=== PATIENT | male | born 1955 | race African-American/Black ===

== ENCOUNTER 2018-06-01 10:04 | Inpatient (IN) | payer OTHER ==
[~2018-06-01] VITALS: Ht 190.5 cm; Wt 88.0 kg
[2018-06-01 09:57] VITALS: BP 137/51
--- NOTE | 2018-06-01 10:04 | NUR ---
ED Nurse Note: brought in by 82Jolly from home due to LUQ abdominal pain 12/19 with N/V that started 2 days ago. Pt came in with emesis bag full of bile. Last meal was yesterday morning. Addendum: 06/01/18 at 1015 by [email or web address] ED Nurse Note: brought in by 82Jolly from home due to LUQ abdominal pain 12/19 with N/V that started this morning. Pt came in with emesis bag full of bile. Last meal was yesterday morning. Denies bloody stool nor bloody emesis.
--- NOTE | 2018-06-01 10:18 | Emergency Room Report ---
History of Present Illness General Chief Complaint: Abdominal Pain Source: Patient, EMS Present Illness HPI Patient presents with epigastric pain and vomiting. He denies vomiting blood. This began this morning. He was drinking heavily last night and today. He moved his bowels yesterday. He didn't notice what color the stool was. He rates the pain 12/10 at this time. He says can't keep anything down. Pain is constant and epigastric, not radiating. Generalized weakness, more when standing. Patient diabetic. No fevers, chills, cough, sore throat, chest pain, headache, depression. No joint pain. Allergies: Coded Allergies: No Known Allergies (Unverified , 06/01/18) Patient History Past Medical History: see triage record Social History: Reports: alcohol use, drug use - see tox Social History Narrative from home Reviewed Nursing Documentation: PMH: Agreed; PSxH: Agreed Nursing Documentation-PMH Past Medical History: No History, Except For Hx Hypertension: Yes Hx Pacemaker: Yes Hx Diabetes: Yes History Of Psychiatric Problem: Yes Review of Systems All Other Systems: negative except mentioned in HPI Physical Exam Vital Signs Date Time Temp Pulse Resp B/P (MAP) Pulse Ox O2 Delivery O2 Flow Rate FiO2 06/01/18 09:53 98.1 68 18 141/68 95 Room Air Sp02 EP Interpretation: reviewed, normal General Appearance: mild distress Head: normocephalic Eyes: bilateral eye PERRL, bilateral eye EOMI, bilateral eye Scleral Injection ENT: moist mucus membranes Neck: supple Respiratory: lungs clear, normal breath sounds Cardiovascular #1: regular rate, rhythm Cardiovascular #2: 2+ radial (R) Gastrointestinal: normal inspection, soft, no mass, non-distended, no rebound, guarding - epigastric, tenderness - epigastric, decreased bowel sounds Genitourinary: no CVA tenderness Musculoskeletal: back normal, normal range of motion Neurologic: alert, oriented x3, grossly normal Psychiatric: depressed affect Skin: normal inspection, warm/dry Medical Decision Making Diagnostic Impression: Primary Impression: Abdominal pain Qualified Codes: R10.13 - Epigastric pain Additional Impressions: Hyperglycemia Renal insufficiency Cocaine abuse Leukocytosis Qualified Codes: D72.828 - Other elevated white blood cell count Elevated lipase ER Course Patient with NV and epigastric pain started this AM. DDx: gastritis, pancreatitis, GERD, AMI, dehydration amongst others. Evaluation with EKG, CXR, Abd, labs. Treatment with IV hydration, reglan, benadryl and pepcid. EKG without injury. CXR no infiltrates. Abd without SBO. Elevated WBC. Renal insufficiency. Elevated glucose. + tox cocaine. Min elevated lipase. Improved and wants to eat. States he is non-compliant with insulin and does not know doses. Due to labs and still with nausea and abominal pain needs admission. Not surgical abdomen. Admit med, Dr. Beltrán. Laboratory Tests Test 06/01/18 10:04 06/01/18 11:50 White Blood Count 16.2 K/UL (4.8-10.8) H Red Blood Count 4.87 M/UL (4.70-6.10) Hemoglobin 13.4 G/DL (14.2-18.0) L Hematocrit 41.2 % (42.0-52.0) L Mean Corpuscular Volume 85 FL (80-99) Mean Corpuscular Hemoglobin 27.4 PG (27.0-31.0) Mean Corpuscular Hemoglobin Concent 32.4 G/DL (32.0-36.0) Red Cell Distribution Width 14.3 % (11.6-14.8) Platelet Count 204 K/UL (150-450) Mean Platelet Volume 8.6 FL (6.5-10.1) Neutrophils (%) (Auto) 83.7 % (45.0-75.0) H Lymphocytes (%) (Auto) 9.1 % (20.0-45.0) L Monocytes (%) (Auto) 6.6 % (1.0-10.0) Eosinophils (%) (Auto) 0.0 % (0.0-3.0) Basophils (%) (Auto) 0.6 % (0.0-2.0) Prothrombin Time 12.0 SEC (9.30-11.50) H Prothrombin Time INR 1.1 (0.9-1.1) PTT 29 SEC (23-33) Sodium Level 137 MMOL/L (136-145) Potassium Level 3.9 MMOL/L (3.5-5.1) Chloride Level 98 MMOL/L (98-107) Carbon Dioxide Level 29 MMOL/L (21-32) Anion Gap 11 mmol/L (5-15) Blood Urea Nitrogen 24 mg/dL (7-18) H Creatinine 1.4 MG/DL (0.55-1.30) H Estimate Glomerular Filtration Rate 51.0 mL/min (>60) Glucose Level 322 MG/DL (74-106) H Calcium Level 9.7 MG/DL (8.5-10.1) Total Bilirubin 0.8 MG/DL (0.2-1.0) Aspartate Amino Transferase (AST) 41 U/L (15-37) H Alanine Aminotransferase (ALT) 89 U/L (12-78) H Alkaline Phosphatase 115 U/L (46-116) Total Creatine Kinase 56 U/L (26-308) Troponin I 0.034 ng/mL (0.000-0.056) Total Protein 8.1 G/DL (6.4-8.2) Albumin 3.5 G/DL (3.4-5.0) Globulin 4.6 g/dL Albumin/Globulin Ratio 0.8 (1.0-2.7) L Lipase 414 U/L (73-393) H Urine Color Pale yellow Urine Appearance Clear Urine pH 6 (4.5-8.0) Urine Specific [place] 1.010 (1.005-1.035) Urine Protein 2+ (NEGATIVE) H Urine Glucose (UA) 4+ (NEGATIVE) H Urine Ketones 1+ (NEGATIVE) H Urine Blood Negative (NEGATIVE) Urine Nitrite Negative (NEGATIVE) Urine Bilirubin Negative (NEGATIVE) Urine Urobilinogen Normal MG/DL (0.0-1.0) Urine Leukocyte Esterase Negative (NEGATIVE) Urine RBC 0 /HPF (0 - 0) Urine WBC 0-2 /HPF (0 - 0) Urine Squamous Epithelial Cells Occasional /LPF Urine Bacteria Occasional /HPF (NONE) Urine Opiates Screen Negative (NEGATIVE) Urine Barbiturates Screen Negative (NEGATIVE) Phencyclidine (PCP) Screen Negative (NEGATIVE) Urine Amphetamines Screen Negative (NEGATIVE) Urine Benzodiazepines Screen Negative (NEGATIVE) Urine Cocaine Screen Positive (NEGATIVE) H Urine Marijuana (THC) Screen Negative (NEGATIVE) EKG Diagnostic Results Rate: other - rate 70 Rhythm: other - paced Rhythm Strip Diag. Results EP Interpretation: yes Rhythm: no PVC's, no ectopy, other Chest X-Ray Diagnostic Results Chest X-Ray Diagnostic Results : Chest X-Ray Ordered: Yes # of Views/Limited/Complete: 1 View Indication: Other EP Interpretation: Yes Interpretation: no consolidation, no effusion, no pneumothorax, other - COPD , pacer Impression: Other Electronically Signed by: Electronically signed by Jarad Anton MD Other X-Ray Diagnostic Results Other X-Ray Diagnostic Results : X-Ray ordered: abdomen # of Views/Limited Vs Complete: 2 View Indication: Pain EP Interpretation: Yes Interpretation: nonspecific bowel gas, no sbo, other - calcifications Impression: Other Electronically Signed by: Electronically signed by Jarad Anton MD Status: improved Disposition: ADMITTED INPATIENT Condition: Serious Scripts No Active Prescriptions or Reported Meds Jarad Anton MD Jun 01, 2018 10:18
[2018-06-01] MEDS ORDERED: Metoclopramide 10mg/2ml Inj IVP ONE (10:30)
[2018-06-01] MEDS ORDERED: DiphenhydrAMINE 50mg/ml Inj IVP ONE (10:30)
[2018-06-01 10:37] LABS: BASOPHILS % (AUTO) 0.6 % (0.0-2.0); HEMATOCRIT 41.2 % (42.0-52.0); HEMOGLOBIN 13.4 G/DL (14.2-18.0); LYMPHOCYTES % (AUTO) 9.1 % (20.0-45.0); MEAN CORPUSCULAR VOLUME 85 FL (80-99); MONOCYTES % (AUTO) 6.6 % (1.0-10.0); NEUTROPHILS % (AUTO) 83.7 % (45.0-75.0); PLATELET COUNT 204 K/UL (150-450); RED BLOOD COUNT 4.87 M/UL (4.70-6.10); RED CELL DISTRIBUTION WIDTH 14.3 % (11.6-14.8); WHITE BLOOD COUNT 16.2 K/UL (4.8-10.8)
[2018-06-01 10:42] LABS: INR 1.1 (0.9-1.1)
[2018-06-01 10:46] LABS: ANION GAP 11 mmol/L (5-15); BLOOD UREA NITROGEN 24 mg/dL (7-18); CALCIUM 9.7 MG/DL (8.5-10.1); CARBON DIOXIDE 29 MMOL/L (21-32); CHLORIDE 98 MMOL/L (98-107); CREATININE 1.4 MG/DL (0.55-1.30); POTASSIUM 3.9 MMOL/L (3.5-5.1); SODIUM 137 MMOL/L (136-145)
[2018-06-01 10:51] LABS: ALANINE AMINOTRANSFERASE 89 U/L (12-78); ALBUMIN 3.5 G/DL (3.4-5.0); ALBUMIN/GLOBULIN RATIO 0.8 (1.0-2.7); ALKALINE PHOSPHATASE 115 U/L (46-116); ASPARTATE AMINO TRANSFERASE 41 U/L (15-37); BILIRUBIN,TOTAL 0.8 MG/DL (0.2-1.0); CREATINE KINASE 56 U/L (26-308)
--- NOTE | 2018-06-01 10:57 | Diagnostic Imaging Report ---
EXAM: XR Chest, 1 View CLINICAL HISTORY: ABD PAIN TECHNIQUE: Frontal view of the chest. COMPARISON: No relevant prior studies available. FINDINGS: Lungs: Mild perihilar interstitial prominence and streaky opacities in the right lower lobe. No consolidation. Pleural space: Unremarkable. No pneumothorax. Heart: Unremarkable. No cardiomegaly. Mediastinum: Unremarkable. Bones/joints: Unremarkable. Tubes, lines and devices: Cardiac pacemaker. IMPRESSION: Mild perihilar interstitial prominence and streaky opacities in the right lower lobe. May be mild edema or pneumonitis
--- NOTE | 2018-06-01 11:01 | Diagnostic Imaging Report ---
EXAM: XR Abdomen, 1 Views CLINICAL HISTORY: ABD PAIN TECHNIQUE: Frontal view of the abdomen/pelvis. COMPARISON: No relevant prior studies available. FINDINGS: Gastrointestinal tract: Moderate stool in colon, constipation. No bowel obstruction. Organs: 5 mm calcification overlying the left renal shadow, maybe renal stone. 7 mm calcification overlying the right upper lobe, possibly gallstone. Bones/joints: Degenerative changes of the spine. IMPRESSION: 1. Moderate stool in colon, constipation. No bowel obstruction. 2. 5 mm calcification overlying the left renal shadow, maybe renal stone. 3. 7 mm calcification overlying the right upper lobe, possibly gallstone.
[2018-06-01 11:59] VITALS: BP 140/46
[2018-06-01 12:06] LABS: APPEARANCE,URINE CLEAR; BILIRUBIN, URINE NEGATIVE (NEGATIVE); COLOR,URINE PALE YELLOW; GLUCOSE, URINE (UA) 4+ (NEGATIVE); KETONES,URINE 1+ (NEGATIVE); LEUKOCYTE ESTERASE ,URINE NEGATIVE (NEGATIVE); NITRITE,URINE NEGATIVE (NEGATIVE); PH,URINE 6 (4.5-8.0); PROTEIN,URINE 2+ (NEGATIVE); UROBILINOGEN,URINE NORMAL MG/DL (0.0-1.0)
--- NOTE | 2018-06-01 13:08 | NUR ---
ED Nurse Note: Pt resting in bed, sleeping. No s/s of distress at this time.
--- NOTE | 2018-06-01 13:50 | NUR ---
ED Nurse Note: Received ERMD's verbal order for oral challenge. Pt was able to tolerate sandwich and juice well.
[2018-06-01 14:07] VITALS: BP 145/49
[2018-06-01] MEDS ORDERED: Morphine Sulfate 2mg/ml Inj(IV/IM USE ONLY) IVP PRN (15:15)
[2018-06-01] MEDS ORDERED: Insulin Human Regular 100units/ml 3ml SUBQ ONE (15:30)
--- NOTE | 2018-06-01 15:47 | NUR ---
ED Nurse Note: telephone report given to GRAEME Monroe from 3E. Pt is A/Ox4. VSS. No s/s of distress. All belongings given to pt. Will transfer the pt up soon.
--- NOTE | 2018-06-01 15:55 | NUR ---
TRANSFER TO FLOOR: Patient transferred to #[id number] as ordered via [facility]port [facility] with REJI Davis . Report given to GRAEME Wilburn. Belongings given to pt. No s/s of distress. A/Ox4. Skin intact. BS of 286 after 7U of insulin SQ.
[2018-06-01] MEDS ORDERED: Thiamine 100mg tab ORAL SCH (16:00)
[2018-06-01] MEDS: Enoxaparin 40mg Inj SUBQ SCH (16:00)
[2018-06-01] MEDS ORDERED: Enoxaparin 30mg Inj SUBQ SCH (16:15)
[2018-06-01] MEDS: NovoLOG Insulin Flexpen SUBQ SCH ×2 (16:30→21:49)
--- NOTE | 2018-06-01 19:07 | NUR ---
HAND-OFF: Report given to Tessa BEDOLLA.
--- NOTE | 2018-06-01 19:45 | NUR ---
NURSE NOTES: Received report from GRAEME Monroe. Received pt lying in bed, asleep, easily arousable by verbal stimuli, AOX4, denies any pain, no distress noted. IV R FA #20 patent and intact. Bed in lowest position and locked, side rails up x 2, call light within reach. Will continue to monitor.
[2018-06-01 20:00] VITALS: BP 124/75
--- NOTE | 2018-06-01 21:45 | History and Physical Report ---
DATE OF ADMISSION: 06/01/2018 REASON FOR ADMISSION: 1. Alcohol dependency. 2. Abdominal pain. HISTORY OF PRESENT ILLNESS: The patient is a 63-year-old gentleman who presented to the emergency room complaining of epigastric pain with some nausea and vomiting. He says his vomitus looked mainly like food and alcohol, he had drunk from the night before. No blood. The patient drinks heavily Jesica and was not feeling well today. He says he has no chest pain. He has been drinking quite heavily late. The patient was given food and said eating does make his abdominal pain worse. ALLERGIES: No known drug allergies SOCIAL HISTORY: Positive for alcohol dependency. Denies any illicit drug use or smoking. FAMILY HISTORY: Positive for hypertension. PAST SURGICAL HISTORY: Noncontributory. REVIEW OF SYSTEMS: NEUROLOGIC: The patient denies headache, change in vision, syncope, or presyncopal episodes. CARDIOVASCULAR: No current chest pain, palpitations, or angina. PULMONARY: No difficulty breathing, productive cough, or sputum. GASTROINTESTINAL AND GENITOURINARY: The patient is having nausea and vomiting. No diarrhea with abdominal pain. ENDOCRINOLOGY: No night sweats, fevers, or chills. MUSCULOSKELETAL: The patient is feeling weak, tired, and fatigue. LABORATORY DATA: Labs dated 06/01/2018, sodium 137 and potassium 3.9. AST and ALT 41 and 89 respectively. Lipase 414. Toxicology screen is pending. White cell count 16.2, hemoglobin 13.4, and platelet count 204,000. PHYSICAL EXAMINATION: VITAL SIGNS: Blood pressure 145/49, respiratory rate 28, pulse 80, temperature 98.1, and 100% saturation room air. GENERAL: The patient is awake, in mild distress. HEENT: Extraocular muscles intact. No lymphadenopathy noted. CARDIOVASCULAR: S1 and S2. No rubs or gallops. PULMONARY: Clear to auscultation bilaterally. No rales, rhonchi, or wheezes. ABDOMEN: Mild tenderness in all 4 quadrants. Fair bowel sounds. EXTREMITIES: No edema noted. ASSESSMENT AND PLAN: 1. Abdominal pain secondary likely to pancreatitis from heavy alcohol consumption. The patient will be aggressively hydrated, placed on NPO status and Gastroenterology will be consulted. The patient was abstaining from further alcohol consumption. 2. Pancreatitis secondary to heavy alcohol consumption. We will start thiamine and folate and aggressive hydration. 3. Alcohol dependency. Thiamine, folate. Alcohol abstinence and further education. 4. Deep venous thrombosis prophylaxis with Lovenox. 5. Hypertension. We will add Coreg. Angelo Denson MD DR: ZAMZAM JOB#: [id number] CC:
[2018-06-02] VITALS: BP 141/69
[2018-06-02 04:00] VITALS: BP 129/65
[2018-06-02 05:08] LABS: BASOPHILS % (AUTO) 1.4 % (0.0-2.0); EOSINOPHILS % (AUTO) 0.8 % (0.0-3.0); HEMATOCRIT 35.6 % (42.0-52.0); HEMOGLOBIN 11.9 G/DL (14.2-18.0); LYMPHOCYTES % (AUTO) 27.2 % (20.0-45.0); MEAN CORPUSCULAR VOLUME 85 FL (80-99); MONOCYTES % (AUTO) 10.5 % (1.0-10.0); PLATELET COUNT 166 K/UL (150-450); RED BLOOD COUNT 4.21 M/UL (4.70-6.10); RED CELL DISTRIBUTION WIDTH 14.2 % (11.6-14.8)
[2018-06-02 05:43] LABS: ANION GAP 7 mmol/L (5-15); BLOOD UREA NITROGEN 16 mg/dL (7-18); CARBON DIOXIDE 28 MMOL/L (21-32); CHLORIDE 104 MMOL/L (98-107); POTASSIUM 4.1 MMOL/L (3.5-5.1); SODIUM 139 MMOL/L (136-145)
[2018-06-02] MEDS: NovoLOG Insulin Flexpen SUBQ SCH ×4 (05:47→20:33)
[2018-06-02 05:48] LABS: PHOSPHORUS 3.1 MG/DL (2.5-4.9)
--- NOTE | 2018-06-02 07:30 | NUR ---
HAND-OFF: Report given to GRAEME Cortez. Pt in stable condition.
--- NOTE | 2018-06-02 07:35 | NUR ---
NURSE NOTES: Received report from Emeka BEDOLLA. Received pt in bed, awake and AOX4, denies any pain, nausea or vomiting. IV intact, no s/s of infiltration. Patient asks for food and RN educated on his diagnosis, patient understood but RN will follow up with the doctor. Bed in lowest position and locked, side rails up x 2, call light within reach. Will continue to monitor.
[2018-06-02 08:00] VITALS: BP 121/66
--- NOTE | 2018-06-02 09:01 | Nephrology Progress Note ---
Assessment/Plan Assessment/Plan A/P 1) Abd Pain- pancreatitis due to alcohol/Cocaine - IVFs - GI consult - start clear liquids - DC once cleared by GI 2) Polysubstance Abuse- alcohol and cocaine - SW to address 3) MARIA EUGENIA- resolved post hydration from prerenal vol depletion Subjective Date patient seen: Jun 02, 2018 Time patient seen: 08:58 ROS Limited/Unobtainable: No Allergies: Coded Allergies: No Known Allergies (Unverified , 06/01/18) Subjective Patient says abdominal pain improved. Wanting to eat Objective Last 24 Hour Vital Signs Date Time Temp Pulse Resp B/P (MAP) Pulse Ox O2 Delivery O2 Flow Rate FiO2 06/02/18 04:00 97.4 93 18 129/65 (86) 99 06/02/18 00:00 98.5 71 18 141/69 (93) 100 06/01/18 21:43 71 124/75 06/01/18 21:00 Room Air 06/01/18 20:00 100.1 71 18 124/75 (91) 100 06/01/18 17:42 Room Air 06/01/18 15:55 98.1 80 28 145/49 96 Room Air 06/01/18 14:07 80 28 145/49 96 Room Air 06/01/18 11:59 70 20 140/46 100 Room Air 06/01/18 10:00 76 15 Room Air 06/01/18 09:57 98.1 70 15 137/51 99 Room Air 06/01/18 09:53 98.1 68 18 141/68 95 Room Air Intake and Output 06/01/18 06/02/18 19:00 07:00 Intake Total 1000 ml 625 ml Output Total 500 ml Balance 1000 ml 125 ml Intake IV Total 1000 ml 625 ml Output Urine Total 500 ml # Voids 2 1 Laboratory Tests 06/01/18 10:04: White Blood Count 16.2H, Red Blood Count 4.87, Hemoglobin 13.4L, Hematocrit 41.2L, Mean Corpuscular Volume 85, Mean Corpuscular Hemoglobin 27.4, Mean Corpuscular Hemoglobin Concent 32.4, Red Cell Distribution Width 14.3, Platelet Count 204, Mean Platelet Volume 8.6, Neutrophils (%) (Auto) 83.7H, Lymphocytes ( %) (Auto) 9.1L, Monocytes (%) (Auto) 6.6, Eosinophils (%) (Auto) 0.0, Basophils (%) (Auto) 0.6, Prothrombin Time 12.0H, Prothromb Time International Ratio 1.1, Activated Partial Thromboplast Time 29, Sodium Level 137, Potassium Level 3.9, Chloride Level 98, Carbon Dioxide Level 29, Anion Gap 11, Blood Urea Nitrogen 24H, Creatinine 1.4H, Estimat Glomerular Filtration Rate 51.0, Glucose Level 322H, Calcium Level 9.7, Total Bilirubin 0.8, Aspartate Amino Transf (AST/SGOT) 41H, Alanine Aminotransferase (ALT/SGPT) 89H, Alkaline Phosphatase 115, Total Creatine Kinase 56, Troponin I 0.034, Total Protein 8.1, Albumin 3.5, Globulin 4.6, Albumin/Globulin Ratio 0.8L, Lipase 414H 06/01/18 11:50: Urine Color Pale yellow, Urine Appearance Clear, Urine pH 6, Urine Specific [place] 1.010, Urine Protein 2+H, Urine Glucose (UA) 4+H, Urine Ketones 1+H, Urine Blood Negative, Urine Nitrite Negative, Urine Bilirubin Negative, Urine Urobilinogen Normal, Urine Leukocyte Esterase Negative, Urine RBC 0, Urine WBC 0 -2, Urine Squamous Epithelial Cells Occasional, Urine Bacteria Occasional, Urine Opiates Screen Negative, Urine Barbiturates Screen Negative, Phencyclidine (PCP) Screen Negative, Urine Amphetamines Screen Negative, Urine Benzodiazepines Screen Negative, Urine Cocaine Screen PositiveH, Urine Marijuana (THC) Screen Negative 06/02/18 04:40: White Blood Count 10.0, Red Blood Count 4.21L, Hemoglobin 11.9L, Hematocrit 35.6L, Mean Corpuscular Volume 85, Mean Corpuscular Hemoglobin 28.1, Mean Corpuscular Hemoglobin Concent 33.3, Red Cell Distribution Width 14.2, Platelet Count 166, Mean Platelet Volume 8.1, Neutrophils (%) (Auto) 60.0, Lymphocytes (% ) (Auto) 27.2, Monocytes (%) (Auto) 10.5H, Eosinophils (%) (Auto) 0.8, Basophils (%) (Auto) 1.4, Sodium Level 139, Potassium Level 4.1, Chloride Level 104, Carbon Dioxide Level 28, Anion Gap 7, Blood Urea Nitrogen 16, Creatinine 1.0, Estimat Glomerular Filtration Rate > 60, Glucose Level 168#H, Calcium Level 9.0, Phosphorus Level 3.1, Magnesium Level 1.5L Height (Feet): 6 Height (Inches): 3.00 Weight (Pounds): 194 General Appearance: no apparent distress, alert EENT: normal ENT inspection Neck: normal alignment, supple Cardiovascular: normal rate, regular rhythm Respiratory/Chest: lungs clear, normal breath sounds Abdomen: non tender, soft Edema: no edema noted Arm (L), no edema noted Arm (R), no edema noted Leg (L), no edema noted Leg (R), no edema noted Pedal (L), no edema noted Pedal (R), no edema noted Generalized Angelo Denson MD Jun 02, 2018 09:01
[2018-06-02] MEDS: Thiamine 100mg tab ORAL SCH (09:49)
[2018-06-02 12:00] VITALS: BP 102/58
--- NOTE | 2018-06-02 12:30 | NUR ---
NURSE NOTES: Patient tolerated well to clear liquid diet. Denies nausea, vomiting or pain.
--- NOTE | 2018-06-02 15:19 | NUR ---
NURSE NOTES: Patient complains of nausea but no episodes of vomiting. zofran is not due yet. RN spoke to Dr. Guillaume and received order to give reglan 10mg IVP Q6hr PRN for nausea/vomiting if zofran is ineffective. Order read back and carried out and Dr. Guillaume wants to keep him on regular diet. Will continue to monitor.
[2018-06-02] MEDS: Metoclopramide 10mg/2ml Inj IVP PRN (15:37)
[2018-06-02] MEDS: Enoxaparin 40mg Inj SUBQ SCH (15:39)
[2018-06-02 16:00] VITALS: BP 122/65
--- NOTE | 2018-06-02 17:18 | NUR ---
CASE MANAGEMENT: INITIAL REVIEW 63 YO M NIKKI FROM HOME CC: ABD PAIN PMHx: HTN. PACER. DM. SI:PANCREATITIS. METHAMPHETAMINES ABUSE. RENAL FAILURE. T 98.1 HR 68 RR 18 B/P 141/68 SATS 95% ON RA WBC 16.2 BUN 24 CR 1.4 GLU 322 AST 41 ALT 89 LIPASE 414 U TOX (+COCAINE) IS: ZOFRAN IV X1 PEPCID IV X1 NS BOLUS X1 BENADRYL IV X1 REGLAN IV X1 PATIENT ADMITTED TO MED/SURG 06/01/2018 @ 1296 DCP: PATIENT TO BE DISCHARGED TO HOME ONCE MEDICALLY CLEARED. PLAN OF CARE: HYDRATION NPO GI CONSULT Addendum: 06/02/18 at 1904 by Leticia Valdez CM INTERQUAL MET
--- NOTE | 2018-06-02 19:18 | NUR ---
HAND-OFF: Report given to
--- NOTE | 2018-06-02 19:30 | NUR ---
NURSE NOTES: Received report from GRAEME Cortez. Received pt lying in bed, AOX4, ambulated to the restroom steady gait, voided, safely back in bed without difficulty. Denies any pain, no nausea or vomiting, no distress noted. Bed in lowest position and locked, side rails up x 2, call light within reach. Will continue to monitor.
--- NOTE | 2018-06-02 19:55 | General Progress Note ---
Assessment/Plan Assessment/Plan GI CONSULT Dictated N/V, likely acute EtOH gastritis Mild elevated in lipase noted, doubt pancreatitis Will advance po diet to solids OK for D/c in am if tolerates po solids Thank you Chris Guillaume MD Subjective Allergies: Coded Allergies: No Known Allergies (Unverified , 06/01/18) Objective Last 24 Hour Vital Signs Date Time Temp Pulse Resp B/P (MAP) Pulse Ox O2 Delivery O2 Flow Rate FiO2 06/02/18 16:00 97.9 72 18 122/65 (84) 100 06/02/18 12:00 98.6 75 16 102/58 (73) 100 06/02/18 09:49 87 121/66 06/02/18 09:00 Room Air 06/02/18 08:00 98.0 87 18 121/66 (84) 100 06/02/18 04:00 97.4 93 18 129/65 (86) 99 06/02/18 00:00 98.5 71 18 141/69 (93) 100 06/01/18 21:43 71 124/75 06/01/18 21:00 Room Air 06/01/18 20:00 100.1 71 18 124/75 (91) 100 Intake and Output 06/01/18 06/02/18 19:00 07:00 Intake Total 1000 ml 750 ml Output Total 500 ml Balance 1000 ml 250 ml IV Total 1000 ml 750 ml Output Urine Total 500 ml # Voids 2 1 Laboratory Tests 06/02/18 04:40: White Blood Count 10.0, Red Blood Count 4.21L, Hemoglobin 11.9L, Hematocrit 35.6L, Mean Corpuscular Volume 85, Mean Corpuscular Hemoglobin 28.1, Mean Corpuscular Hemoglobin Concent 33.3, Red Cell Distribution Width 14.2, Platelet Count 166, Mean Platelet Volume 8.1, Neutrophils (%) (Auto) 60.0, Lymphocytes (% ) (Auto) 27.2, Monocytes (%) (Auto) 10.5H, Eosinophils (%) (Auto) 0.8, Basophils (%) (Auto) 1.4, Sodium Level 139, Potassium Level 4.1, Chloride Level 104, Carbon Dioxide Level 28, Anion Gap 7, Blood Urea Nitrogen 16, Creatinine 1.0, Estimat Glomerular Filtration Rate > 60, Glucose Level 168#H, Calcium Level 9.0, Phosphorus Level 3.1, Magnesium Level 1.5L Height (Feet): 6 Height (Inches): 3.00 Weight (Pounds): 194 Chris Guillaume MD Jun 02, 2018 19:54
[2018-06-02 20:00] VITALS: BP 104/53
--- NOTE | 2018-06-02 20:15 | Consultation ---
DATE OF CONSULTATION: 06/02/2018 GASTROENTEROLOGY CONSULTATION: CONSULTING PHYSICIAN: Chris Guillaume M.D. CHIEF COMPLAINT: I was asked to see this patient by Dr. Denson for evaluation of abdominal issues. HISTORY OF PRESENT ILLNESS: The patient is a 63-year-old man, who drank somewhat heavily on Sunday night and the next day started having nausea and vomiting, came to the emergency room at [facility]. He had some mild elevation of lipase and is admitted with diagnosis of vomiting and mild pancreatitis. He feels better today. He has had no further vomiting. He has been tolerating clear liquid diet. He denies abdominal pain. He has had no previous episodes of alcoholic pancreatitis, but he has had a history of hepatitis C. He denies any hematochezia. PAST MEDICAL HISTORY: History of hepatitis C, alcohol abuse, diabetes, status post pacemaker placement. FAMILY HISTORY: Noncontributory. SOCIAL HISTORY: The patient drinks intermittently and uses cocaine. REVIEW OF SYSTEMS: Otherwise negative. ALLERGIES: None. PHYSICAL EXAMINATION: GENERAL: Pleasant elderly man, seen in his room. HEENT: Normocephalic and atraumatic. Sclerae anicteric. Oropharynx clear. NECK: Supple. CHEST: Clear to auscultation. CARDIOVASCULAR: Revealed regular rate. ABDOMEN: Soft, flat. Good bowel sounds. There is no organomegaly or tenderness. EXTREMITIES: No edema. LABORATORY DATA: Noted. IMAGING STUDIES: Reviewed. ASSESSMENT: This patient presents with nausea and vomiting after heavy night of alcohol use. His symptoms have resolved and therefore he can be managed conservatively. He had a mildly elevated lipase, but this does not necessarily signify significant pancreatitis. His diet can therefore be advanced to regular and he was strongly advised to stop drinking alcohol. He was also advised to follow up with primary physician for good primary care including screening colonoscopy, for management of diabetes, treatment and eradication of hepatitis C. RECOMMENDATIONS: 1. Advance diet. 2. Follow symptoms. 3. Discharge once able to tolerate oral diet. 4. Outpatient followup with primary care physician for general health issues including the matter as discussed above. Thank you for asking me to participate in the care of this patient. Chris Guillaume M.D. DR: NAEEM JOB#: [id number] CC:
[2018-06-03] VITALS: BP 137/70
[2018-06-03 04:00] VITALS: BP 131/70
[2018-06-03] MEDS: NovoLOG Insulin Flexpen SUBQ SCH ×2 (05:46→13:00)
[2018-06-03] MEDS: Metoclopramide 10mg/2ml Inj IVP PRN (05:49)
--- NOTE | 2018-06-03 07:45 | NUR ---
HAND-OFF: Report given to GRAEME Rubio. Pt in stable condition.
[2018-06-03 08:00] VITALS: BP 130/73
--- NOTE | 2018-06-03 08:00 | NUR ---
NURSE NOTES: Received report from Emeka Desai pt a/a/o x4 laying in bed with no signs of distress or other issues at this time. Iv on the right AC gauge#18 running NS@150ml/hr. pt advanced to regular diet, pt is tolerating well with no n/v. call light within reach. bed in lowest position. side rales up x2.plan to d/c home today. I will f/u as needed.
--- NOTE | 2018-06-03 08:21 | Nephrology Progress Note ---
Assessment/Plan Assessment/Plan A/P 1) Abd Pain- pancreatitis due to alcohol/Cocaine - resolved. AM labs pending. DC today as cleared from GI 2) Polysubstance Abuse- alcohol and cocaine - SW to address 3) MARIA EUGENIA- resolved post hydration from prerenal vol depletion Subjective Date patient seen: Jun 03, 2018 Time patient seen: 08:20 ROS Limited/Unobtainable: No Allergies: Coded Allergies: No Known Allergies (Unverified , 06/01/18) Subjective Patient says abdominal pain improved and ate breakfast reg food Objective Last 24 Hour Vital Signs Date Time Temp Pulse Resp B/P (MAP) Pulse Ox O2 Delivery O2 Flow Rate FiO2 06/03/18 04:00 98.1 75 18 131/70 (90) 100 06/03/18 00:00 98.0 72 18 137/70 (92) 100 06/02/18 21:00 Room Air 06/02/18 20:28 80 104/53 06/02/18 20:00 97.7 76 18 104/53 (70) 95 06/02/18 16:00 97.9 72 18 122/65 (84) 100 06/02/18 12:00 98.6 75 16 102/58 (73) 100 06/02/18 09:49 87 121/66 06/02/18 09:00 Room Air Intake and Output 06/02/18 06/03/18 19:00 07:00 Intake Total 1465 ml 1245 ml Output Total 900 ml Balance 1465 ml 345 ml Intake Oral 240 ml 120 ml IV Total 1225 ml 1125 ml Output Urine Total 900 ml # Voids 2 Laboratory Tests 06/03/18 06:23: Sodium Level [Pending], Potassium Level [Pending], Chloride Level [Pending], Carbon Dioxide Level [Pending], Blood Urea Nitrogen [Pending], Creatinine [ Pending], Estimat Glomerular Filtration Rate [Pending], Glucose Level [Pending] , Calcium Level [Pending], Lipase [Pending] Height (Feet): 6 Height (Inches): 3.00 Weight (Pounds): 194 General Appearance: no apparent distress, alert EENT: normal ENT inspection Neck: normal alignment, supple Cardiovascular: normal rate Respiratory/Chest: lungs clear, normal breath sounds Abdomen: non tender, soft Edema: no edema noted Arm (L), no edema noted Arm (R), no edema noted Leg (L), no edema noted Leg (R), no edema noted Pedal (L), no edema noted Pedal (R), no edema noted Generalized Angelo Denson MD Jun 03, 2018 08:21
--- NOTE | 2018-06-03 08:22 | Discharge Instructions ---
Discharge Instructions Discharge Instructions Services at Discharge: day care Diet: regular Resume Normal Activity?: Yes Activity: light activity Follow Up Orders Follow up PCP and AA For Congestive Heart Failure Reminder Report to your physician any weight gain of 5 pounds or more in one week. Angelo Denson MD Jun 03, 2018 08:22
[2018-06-03 08:40] LABS: ANION GAP 8 mmol/L (5-15); BLOOD UREA NITROGEN 12 mg/dL (7-18); CALCIUM 9.1 MG/DL (8.5-10.1); CARBON DIOXIDE 28 MMOL/L (21-32); CHLORIDE 104 MMOL/L (98-107); CREATININE 0.9 MG/DL (0.55-1.30); POTASSIUM 4.1 MMOL/L (3.5-5.1); SODIUM 140 MMOL/L (136-145)
[2018-06-03 09:52] VITALS: BP 130/73
[2018-06-03] MEDS: Thiamine 100mg tab ORAL SCH (09:53)
--- NOTE | 2018-06-03 13:18 | NUR ---
*-* INSURANCE *-* ALL CLINICALS AND REVIEWS FAXED TO: [employer] SUPERVISOR ASSIGNED AT THIS TIME PLEASE FAX THE REVIEW/CLINICAL P- [phone] F- [phone]
--- NOTE | 2018-06-03 14:45 | NUR ---
NURSE NOTES: RN called Brooklyn HURTADO that patient has a consult for substance abuse. Brooklyn HURTADO stated that she will stop by. I will f/u as needed.
--- NOTE | 2018-06-03 15:46 | NUR ---
Social Service Note Patient is for dc home today. SW met with patient to assess for ETOH dependency and to address positive drug screen for cocaine. Patient is alert, oriented and verbally responsive. Patient declined to discuss substance abuse dependency. Patient accepted referrals provided by [facility] however didn't want to discuss referrals and stated he needed to go.
--- NOTE | 2018-06-03 16:00 | NUR ---
NURSE NOTES: Received orders for discharge. pt's agreed with d/c plan however he was in a rash to go and REFUSED to wait to sign d/c paper work and belongings list. he also stated that the "lift" is already here ready to pick him up. IV removed prior to d/c. pt signed AMA. Ese boathouse keeper is aware. I will f/u as needed.
--- NOTE | 2018-06-03 21:52 | General Progress Note ---
Assessment/Plan Assessment/Plan Assessment N/V, likely acute EtOH gastritis Mild elevated in lipase noted, doubt pancreatitis Recommendations - po as tolerated - avoid EtOH - d/c planning - advised to arrange for screening colon with PMD as outpt Subjective Allergies: Coded Allergies: No Known Allergies (Unverified , 06/01/18) Subjective feels OK for d/c today tolerating PO no vomiting Objective Last 24 Hour Vital Signs Date Time Temp Pulse Resp B/P (MAP) Pulse Ox O2 Delivery O2 Flow Rate FiO2 06/03/18 09:52 78 130/73 06/03/18 08:00 98.4 78 18 130/73 (92) 99 06/03/18 04:00 98.1 75 18 131/70 (90) 100 06/03/18 00:00 98.0 72 18 137/70 (92) 100 Intake and Output 06/02/18 06/03/18 19:00 07:00 Intake Total 1465 ml 1245 ml Output Total 900 ml Balance 1465 ml 345 ml Intake Oral 240 ml 120 ml IV Total 1225 ml 1125 ml Output Urine Total 900 ml # Voids 2 Laboratory Tests 06/03/18 06:23: Sodium Level 140, Potassium Level 4.1, Chloride Level 104, Carbon Dioxide Level 28, Anion Gap 8, Blood Urea Nitrogen 12, Creatinine 0.9, Estimat Glomerular Filtration Rate > 60, Glucose Level 138H, Calcium Level 9.1, Lipase 1050H Height (Feet): 6 Height (Inches): 3.00 Weight (Pounds): 194 Objective WDWN NCAT supple CTA RRR abd soft ND NT no edema non focal Chris Guillaume MD Jun 03, 2018 21:52
--- NOTE | 2018-06-04 13:09 | Discharge Summary ---
Discharge Summary Discharge Summary _ 30 DATE OF ADMISSION: 06/01/2018 DATE OF DISCHARGE: Daily 06/03/2018 Patient left AGAINST MEDICAL ADVICE REASON FOR ADMISSION: 63 years old male with past medical history of alcohol abuse, hypertension, pacemaker, diabetes mellitus, hepatitis C, presented to the emergency department complaining of epigastric pain with nausea and vomiting. He reported that his emesis looked mainly like food and alcohol , since he reported drinking the night before. No blood seen in emesis. Patient was drinking heavily [place] cognac , and was not feeling well since that. He denied chest pain. He denied shortness of breath. Upon evaluation laboratory workup revealed AST 41, ALT 89. Lipase 414. WBC 16.2. Hemoglobin 13.4, hematocrit 41.2. BUN 24, creatinine 1.4. Stable renal parameters, stable electrolytes. Urine toxicology screen was positive for cocaine. Stable coagulation profile. Urinalysis revealed +4 glucose, +2 protein, +1 ketones, but no evidence of UTI. Glucose 322. Chest x-ray revealed mild interstitial prominence and streaky opacity in the right lower lobe, may be mild edema or pneumonitis. Abdominal x-ray demonstrated moderate stool-constipation . No bowel obstruction. 7 cm calcification overlying the right upper lobe, possibly gallstone. 5 mm calcification overlying the left renal shadow, possibly renal stone. Patient was admitted for further management. CONSULTANTS: GI specialist dr. Guillaume [place] [employer] [facility]SE: Patient admitted to medical surgical floor. Patient started on IV hydration and was kept n.p.o. GI consult was requested. Patient was counseled on abstinence from alcohol. Patient started on aggressive hydration with IV fluids and vitamins :thiamine and folate. DVT prophylaxis provided. Blood pressure was managed with beta-meño. GI specialist seen and evaluated patient. GI specialist recommended starting liquid diet , advance diet as tolerated and follow-up symptomatically. Patient can be discharged once tolerated oral diet. Patient started on diet and was advanced as tolerated. Patient was able to tolerate diet. Patient was advised to follow-up with a primary care provider for good primary care, including screening colonoscopy, management of diabetes, and eradication of hepatitis C. Patient was counseled on abstinence from illicit street drugs. GI prophylaxis provided. Renal (electrolytes were closely monitor. Electrolytes/magnesium replaced. Prior to discharge BUN from initial 24 down to 12 and creatinine from initial 1.4 down to 0.9. Blood sugar was closely monitored. broom worker met with patient to address positive urine drug screen for cocaine. Patient declined to discuss substance abuse dependency. Patient did accepted referrals as provided by director of social services however did not want to discuss referrals. Discharge order was received . Patient was stable for discharge. However patient refused to wait to sign discharge paperwork and get discharge instructions, and decided to leave AGAINST MEDICAL ADVICE. The risks and consequences of signing AGAINST MEDICAL ADVICE were discussed with patient in detail. Patient verbalized understanding, nevertheless signed AMA form and left. FINAL DIAGNOSES: Abdominal pain likely secondary to pancreatitis due to heavy alcohol consumption Pancreatitis secondary to heavy alcohol consumption Alcohol dependency Hypertension Hepatitis C Cocaine abuse I have been assigned to dictate discharge summary for this account. I was not involved in the patient's management. Danielle Lawton NP Jun 04, 2018 13:09
--- NOTE | 2018-06-04 19:14 | Cardiology Report ---
APPROVED REPORT EKG Measurement Heart [id number] Atrial flutter/fibrillation V-paced rhythm. Electronic pacemaker.
== END 2018-06-03 15:35 | disposition left against medical advice (07) | DRG 282 ==
LOC: EDBD 10:04 → EMR 11:23 → 3E 14:17 → EDBEDREQ 14:59 → 3E 06-03 09:30
DX: K85.20 Alcohol induced acute pancreatitis without necrosis or infection (principal); N17.9 Acute kidney failure, unspecified; I48.91 Unspecified atrial fibrillation; B19.20 Unspecified viral hepatitis C without hepatic coma; F10.20 Alcohol dependence, uncomplicated; F14.10 Cocaine abuse, uncomplicated; I10 Essential (primary) hypertension; E11.9 Type 2 diabetes mellitus without complications; Z95.0 Presence of cardiac pacemaker; I48.92 Unspecified atrial flutter
CPT/HCPCS: 36415; 71045; 74018; 80048; 80053; 80307; 81003; 82550; 82962; 83690; 83735; 84100; 84484; 85025; 85610; 85730; 87040; 93005; 96361; 96374; 96375; 99285; J1815; J2405; J2765